=== PATIENT | male | born 1945 | race Two or more races ===

== ENCOUNTER 2017-06-22 13:43 | Inpatient (IN) | payer MEDICAID, MEDICARE, OTHER ==
[~2017-06-22] VITALS: Ht 180.3 cm; Wt 123.0 kg
[2017-06-22] MEDS ORDERED: VANCOMYCIN 1GM/250ML 250 ML IV ONE (15:45)
[2017-06-22] MEDS ORDERED: PIPERACILLIN-TAZOB 3.375GM 50 ML IV ONE (15:45)
[2017-06-22 16:36] LABS: Albumin 3.2 g/dL (3.4-5.0); BUN/Creatinine Ratio 4.3; Bilirubin, Total 0.3 mg/dL (0.2-1.0); Calcium 8.4 mg/dL (8.5-10.1)
[2017-06-22 16:42] LABS: Basophils # (auto) 0 uL; Basophils % (auto) 0.3 % (0.0-2.0); Eosinophils # (auto) 0.4 uL; Hematocrit 34.5 % (41.0-53.0); Hemoglobin 11.3 g/dL (13.5-17.5); Lymphocytes # (auto) 1.1 uL; Lymphocytes % (auto) 16.8 % (10.0-50.0); Mean Corpuscular Hgb Conc. 32.9 g/dL (32.0-36.0); Mean Corpuscular Volume 94.2 fL (80.0-100.0); Mean Platelet Volume 8.1 fL (6.9-10.8); Monocytes # (auto) 0.6 uL; Monocytes % (auto) 8.9 % (0.0-12.0); Neutrophils # (auto) 4.6 uL; Platelet Count (auto) 195 10^3/uL (140-450); Red Cell Distribution Width 15.3 % (11.8-14.3); White Blood Cell 6.8 10^3/uL (4.4-10.8)
[2017-06-22 16:45] LABS: Potassium 5.8 mmol/L (3.5-5.1)
[2017-06-22] MEDS ORDERED: DEXTROSE (50%) 50ML SYRG IV ONE (17:00)
[2017-06-22] MEDS ORDERED: ALBUTEROL SULF 2.5 MG/0.5ML(0.5%) NEB SOLN NEB ONE (17:00)
[2017-06-22] MEDS ORDERED: CALCIUM GLUC 4.65meq/50ml D5AE 50 ML IV ONE (17:00)
[2017-06-22] MEDS ORDERED: SODIUM BICARBONATE 8.4% INJ 50ML SYRINGE IV ONE (17:00)
[2017-06-22] MEDS ORDERED: InsuLIN REG 1unit/0.01ml Soln (100units/ml) IV ONE (17:00)
[2017-06-22] MEDS ORDERED: FUROSEMIDE 20 MG/2 ML VIAL IV ONE (17:00)
[2017-06-22] MEDS ORDERED: SODIUM POLYSTYRENE SULF 15GM/60ML SUSP PO ONE ×2 (17:00→20:30)
[2017-06-22] MEDS ORDERED: LORazepam 0.5 MG TAB PO PRN (17:45)
[2017-06-22] MEDS ORDERED: MORPHINE SULF INJ 2 MG/ML SYRINGE 1ML IV PRN ×2 (17:45)
[2017-06-22] MEDS ORDERED: DEXTROSE (50%) 50ML SYRG IV PRN (17:45)
[2017-06-22] MEDS ORDERED: HYDROcodone-ACET 5/325MG TAB PO PRN (17:45)
[2017-06-22] MEDS ORDERED: TEMAZEPAM 15 MG CAP PO PRN (17:45)
[2017-06-22] MEDS ORDERED: ACETAMINOPHEN 500 MG TAB PO PRN (17:45)
[2017-06-22] MEDS ORDERED: NITROGLYCERIN 0.4 MG SL TAB SL PRN (17:45)
[2017-06-22] MEDS ORDERED: PROMETHAZINE HCL 25 MG/ML 1ML IV PRN (17:45)
[2017-06-22] MEDS ORDERED: LACTULOSE 20Gm/30ML SOLN PO PRN (17:45)
[2017-06-22] MEDS ORDERED: PANTOPRAZOLE 40 MG TAB PO ONE (18:00)
[2017-06-22] MEDS ORDERED: ENOXAPARIN SOD 30 MG/0.3 ML SYRINGE SC ONE (18:00)
[2017-06-22 19:50] VITALS: BP 112/56
[2017-06-22] MEDS: SODIUM CHLOR 0.9% PF (SALINE LOCK) 10ML VIAL IV SCH (21:46)
[2017-06-22] MEDS: InsuLIN REG 1unit/0.01ml Soln (100units/ml) SC SCH (21:46)
[2017-06-22] MEDS: ACCU-CHEK COMFORT CURVE STRIP VI SCH (21:47)
[2017-06-22] MEDS: DOXYCYCLINE HYC 100MG/250ML 250 ML IV SCH (21:56)
[2017-06-22] MEDS: SULFAMETHOX W/TRIMETH(800/160MG) DS TAB PO SCH (21:56)
[2017-06-22 22:19] LABS: B-Type Natriuretic Peptide 85.42 pg/mL (0-100)
[2017-06-22 22:45] LABS: Temperature: 22.7 C (20.0-25.0)
[2017-06-23] MEDS ORDERED: OMEP20CA74 PO (03:19)
[2017-06-23] MEDS ORDERED: ALL100T PO (03:19)
[2017-06-23] MEDS ORDERED: SEVE800T8 PO (03:19)
[2017-06-23] MEDS ORDERED: CALC667C PO (03:19)
[2017-06-23 05:08] VITALS: BP 100/53
[2017-06-23] MEDS: SODIUM CHLOR 0.9% PF (SALINE LOCK) 10ML VIAL IV SCH ×3 (05:10→21:37)
[2017-06-23] MEDS ORDERED: HEPARIN SODIUM (PORCINE) 5000 UNITS/ML 1ML VIAL ONE (05:57)
[2017-06-23] MEDS: InsuLIN REG 1unit/0.01ml Soln (100units/ml) SC SCH ×4 (06:18→21:54)
[2017-06-23] MEDS: ACCU-CHEK COMFORT CURVE STRIP VI SCH ×4 (06:18→21:55)
[2017-06-23 06:25] LABS: Basophils # (auto) 0 uL; Basophils % (auto) 0.3 % (0.0-2.0); Eosinophils # (auto) 0.5 uL; Eosinophils % (auto) 8.3 % (0.0-7.0); Hematocrit 29.6 % (41.0-53.0); Hemoglobin 9.9 g/dL (13.5-17.5); Lymphocytes % (auto) 16.7 % (10.0-50.0); Mean Corpuscular Hemoglobin 31.3 pg (28.0-32.0); Mean Corpuscular Hgb Conc. 33.3 g/dL (32.0-36.0); Mean Corpuscular Volume 94.1 fL (80.0-100.0); Mean Platelet Volume 7.8 fL (6.9-10.8); Monocytes # (auto) 0.7 uL; Monocytes % (auto) 10.9 % (0.0-12.0); Neutrophils % (auto) 63.8 % (37.0-80.0); Platelet Count (auto) 175 10^3/uL (140-450); Red Cell Distribution Width 15.2 % (11.8-14.3); White Blood Cell 6.3 10^3/uL (4.4-10.8)
[2017-06-23] MEDS: HEPARIN SODIUM (PORCINE) 5000 UNITS/ML 1ML VIAL SC SCH ×3 (06:37→21:37)
[2017-06-23 06:40] LABS: Albumin 2.6 g/dL (3.4-5.0); BUN/Creatinine Ratio 4.4; Calcium 7.9 mg/dL (8.5-10.1); Potassium 4.7 mmol/L (3.5-5.1)
[2017-06-23 06:42] LABS: Bilirubin, Total 0.3 mg/dL (0.2-1.0); Total Protein 6.8 g/dL (6.4-8.2)
[2017-06-23 08:30] VITALS: BP 116/69
[2017-06-23] MEDS: DOXYCYCLINE HYC 100MG/250ML 250 ML IV SCH (09:11)
[2017-06-23] MEDS: SULFAMETHOX W/TRIMETH(800/160MG) DS TAB PO SCH ×2 (09:53→21:37)
[2017-06-23] MEDS: PANTOPRAZOLE 40 MG TAB PO SCH (09:53)
[2017-06-23] MEDS ORDERED: EPOETIN ALFA 10,000 UNIT/1 ML VIAL IV ONE (11:00)
[2017-06-23] MEDS ORDERED: SODIUM CHL 0.9% 1000 ML BAG XX ONE (11:00)
[2017-06-23 12:30] VITALS: BP 97/61
[2017-06-23 16:41] LABS: INR 0.99 (0.9-1.15); Partial Thromboplastin Time 29.2 sec (22.64-33.71); Prothrombin Time 10.8 sec (9.37-12.3)
[2017-06-23 17:17] VITALS: BP 141/65
[2017-06-23] MEDS: B-COMPLEX W/ C & FOLIC ACID(NEPHROVITE TAB) PO SCH (18:05)
[2017-06-23] MEDS: ASCORBIC ACID 500 MG TAB PO SCH (18:05)
[2017-06-23] MEDS: DOXYCYCLINE 100 MG TAB/CAP PO SCH (21:37)
[2017-06-23 21:49] VITALS: BP 118/59
[2017-06-24 04:45] VITALS: BP 115/64
[2017-06-24] MEDS: SODIUM CHLOR 0.9% PF (SALINE LOCK) 10ML VIAL IV SCH ×3 (05:09→23:08)
[2017-06-24] MEDS: InsuLIN REG 1unit/0.01ml Soln (100units/ml) SC SCH ×4 (06:37→22:00)
[2017-06-24] MEDS: ACCU-CHEK COMFORT CURVE STRIP VI SCH ×4 (06:38→23:09)
[2017-06-24] MEDS ORDERED: ceFAZolin 1GM VL ONE (08:00)
[2017-06-24] MEDS ORDERED: LIDOCAINE 1% HCL (LOCAL ANESTH.) INJ 20ML MDV ONE ×2 (08:00→08:32)
[2017-06-24] MEDS ORDERED: BUPIVACAINE 0.25% INJ 50ML VIAL ONE (08:01)
[2017-06-24] MEDS ORDERED: LIDOCAINE HCL (LOCAL ANESTH.) 0.5 % 50ML MDV IJ ONE (08:01)
[2017-06-24] MEDS ORDERED: HEPARIN SODIUM (PORCINE) 5000 UNITS/ML 1ML VIAL ONE ×3 (08:01→21:06)
[2017-06-24] MEDS ORDERED: BUPIVACAINE W/ EPINEPH 0.5% MPF 30ML VIAL IJ ONE (08:01)
[2017-06-24] MEDS ORDERED: HEPARIN 1,000 UNITS/ml 1ML VIAL ONE (08:01)
[2017-06-24] MEDS ORDERED: BUPIVACAINE W/ EPINEPH 0.25% INJ 50ML MDV ONE (08:01)
[2017-06-24] MEDS ORDERED: ceFAZolin 1GM/50ML 50 ML IV ONE (08:36)
[2017-06-24 09:00] VITALS: BP 93/40
[2017-06-24] MEDS: HEPARIN SODIUM (PORCINE) 5000 UNITS/ML 1ML VIAL SC SCH ×2 (10:00→21:27)
[2017-06-24] MEDS: DOXYCYCLINE 100 MG TAB/CAP PO SCH ×2 (11:24→21:25)
[2017-06-24] MEDS: PANTOPRAZOLE 40 MG TAB PO SCH (11:24)
[2017-06-24] MEDS: ASCORBIC ACID 500 MG TAB PO SCH (11:25)
[2017-06-24] MEDS: B-COMPLEX W/ C & FOLIC ACID(NEPHROVITE TAB) PO SCH (11:39)
[2017-06-24] MEDS: SULFAMETHOX W/TRIMETH(800/160MG) DS TAB PO SCH ×2 (11:39→21:25)
[2017-06-24 13:00] VITALS: BP 117/77
[2017-06-24 17:00] VITALS: BP 117/71
[2017-06-24 22:00] VITALS: BP 90/50
[2017-06-24] MEDS: MUPIROCIN 2% OINT 22GM EACHNOSTRI SCH (23:08)
[2017-06-25 05:00] VITALS: BP 116/66
[2017-06-25 05:44] LABS: Basophils # (auto) 0 uL; Basophils % (auto) 0.3 % (0.0-2.0); Eosinophils # (auto) 0.5 uL; Eosinophils % (auto) 8.9 % (0.0-7.0); Hematocrit 31.8 % (41.0-53.0); Hemoglobin 10.8 g/dL (13.5-17.5); Lymphocytes # (auto) 0.8 uL; Lymphocytes % (auto) 15.2 % (10.0-50.0); Mean Corpuscular Hemoglobin 31.6 pg (28.0-32.0); Mean Corpuscular Hgb Conc. 33.9 g/dL (32.0-36.0); Mean Corpuscular Volume 93.2 fL (80.0-100.0); Monocytes # (auto) 0.6 uL; Monocytes % (auto) 11.1 % (0.0-12.0); Neutrophils # (auto) 3.3 uL; Neutrophils % (auto) 64.5 % (37.0-80.0); Nucleated Red Blood Cells % 0.1 %; Platelet Count (auto) 175 10^3/uL (140-450); Red Cell Distribution Width 15.2 % (11.8-14.3); White Blood Cell 5.1 10^3/uL (4.4-10.8)
[2017-06-25] MEDS: SODIUM CHLOR 0.9% PF (SALINE LOCK) 10ML VIAL IV SCH ×2 (05:57→14:00)
[2017-06-25] MEDS: ACCU-CHEK COMFORT CURVE STRIP VI SCH ×3 (05:58→17:00)
[2017-06-25] MEDS: InsuLIN REG 1unit/0.01ml Soln (100units/ml) SC SCH ×3 (05:58→17:00)
[2017-06-25 06:11] LABS: BUN/Creatinine Ratio 4.5; Calcium 8.8 mg/dL (8.5-10.1); Magnesium 2.2 mg/dL (1.6-2.6); Potassium 4.6 mmol/L (3.5-5.1)
[2017-06-25] MEDS ORDERED: HEPARIN 1,000 UNITS/ml 1ML VIAL ONE (07:45)
[2017-06-25] MEDS ORDERED: ceFAZolin 1GM VL ONE (07:45)
[2017-06-25] MEDS ORDERED: LIDOCAINE 1% HCL (LOCAL ANESTH.) INJ 20ML MDV ONE ×2 (07:45→08:55)
[2017-06-25] MEDS ORDERED: HEPARIN SODIUM (PORCINE) 5000 UNITS/ML 1ML VIAL ONE (07:46)
[2017-06-25] MEDS ORDERED: BUPIVACAINE 0.25% INJ 50ML VIAL ONE (07:46)
[2017-06-25] MEDS ORDERED: BUPIVACAINE W/ EPINEPH 0.25% INJ 50ML MDV ONE (07:46)
[2017-06-25 08:11] LABS: INR 1.05 (0.9-1.15); Partial Thromboplastin Time 30.2 sec (22.64-33.71); Prothrombin Time 11.4 sec (9.37-12.3)
[2017-06-25] MEDS ORDERED: ceFAZolin 1GM/50ML 50 ML IV ONE (08:23)
[2017-06-25 08:25] VITALS: BP 120/62
[2017-06-25] MEDS ORDERED: MIDAZOLAM HCL 1MG/1ML-2 ML VIAL ONE (08:31)
[2017-06-25] MEDS ORDERED: LIDOCAINE HCL 100 MG/5ML (2%) SYRG INJ IV ONE (08:34)
[2017-06-25] MEDS ORDERED: PROPOFOL 10 MG/ML 20 ML IV ONE ×2 (08:34→09:18)
[2017-06-25] MEDS ORDERED: fentaNYL CITRATE 100 MCG/2 ML VL ONE (08:39)
[2017-06-25] MEDS ORDERED: METOCLOPRAMIDE HCL 5MG/ml INJ 2ml VIAL ONE (08:39)
[2017-06-25] MEDS ORDERED: PHENYLEPHRINE HCL 10 MG/ML VL ONE (09:04)
[2017-06-25] MEDS: HEPARIN SODIUM (PORCINE) 5000 UNITS/ML 1ML VIAL SC SCH (10:00)
[2017-06-25] MEDS ORDERED: ONDANSETRON HCL 4 MG/2 ML VIAL IV ONE (10:15)
[2017-06-25] MEDS ORDERED: HYDROmorphone HCL 2 MG/ML VL IV PRN (10:15)
[2017-06-25] MEDS ORDERED: NALOXONE HCL 0.4 MG/ML VIAL IV PRN (10:15)
[2017-06-25] MEDS ORDERED: ACCU-CHEK COMFORT CURVE STRIP VI ONE (10:15)
[2017-06-25] MEDS: B-COMPLEX W/ C & FOLIC ACID(NEPHROVITE TAB) PO SCH (11:29)
[2017-06-25] MEDS: PANTOPRAZOLE 40 MG TAB PO SCH (11:29)
[2017-06-25] MEDS: ASCORBIC ACID 500 MG TAB PO SCH (11:29)
[2017-06-25] MEDS: DOXYCYCLINE 100 MG TAB/CAP PO SCH (11:29)
[2017-06-25] MEDS: MUPIROCIN 2% OINT 22GM EACHNOSTRI SCH (11:30)
[2017-06-25 13:37] VITALS: BP 133/83
[2017-06-25 17:06] VITALS: BP 127/50
== END 2017-06-25 17:36 | disposition home or self-care (01) | DRG 314 ==
LOC: EDBD 13:43 → ER 14:04 → TELE 14:05 → TELE-WESTW 19:50
PROVIDERS: ADMIT Internal Medicine; ATTEND Family Medicine
PROC: 06PY33Z Removal of Infusion Device from Lower Vein, Percutaneous Approach (ICD-10-PCS; 2017-06-24)
PROC: 5A1D70Z Performance of Urinary Filtration, Intermittent, Less than 6 Hours Per Day (ICD-10-PCS; 2017-06-24)
PROC: 06HN33Z Insertion of Infusion Device into Left Femoral Vein, Percutaneous Approach (ICD-10-PCS; principal; 2017-06-24 08:58)
PROC: 05JY3ZZ Inspection of Upper Vein, Percutaneous Approach (ICD-10-PCS; 2017-06-25)
DX: T82.41XA Breakdown (mechanical) of vascular dialysis catheter, initial encounter (principal); N18.6 End stage renal disease; I13.2 Hypertensive heart and chronic kidney disease with heart failure and with stage 5 chronic kidney disease, or end stage renal disease; E87.5 Hyperkalemia; E10.22 Type 1 diabetes mellitus with diabetic chronic kidney disease; L03.115 Cellulitis of right lower limb; E66.01 Morbid (severe) obesity due to excess calories; L03.116 Cellulitis of left lower limb; T82.42XA Displacement of vascular dialysis catheter, initial encounter; Z99.2 Dependence on renal dialysis; I50.9 Heart failure, unspecified; K21.9 Gastro-esophageal reflux disease without esophagitis; G47.33 Obstructive sleep apnea (adult) (pediatric); H54.62 Unqualified visual loss, left eye, normal vision right eye; I44.0 Atrioventricular block, first degree; I45.10 Unspecified right bundle-branch block; I87.8 Other specified disorders of veins; M10.9 Gout, unspecified; Y71.2 Prosthetic and other implants, materials and accessory cardiovascular devices associated with adverse incidents; Z90.49 Acquired absence of other specified parts of digestive tract; Z98.42 Cataract extraction status, left eye; Z98.41 Cataract extraction status, right eye; Z91.041 Radiographic dye allergy status; Z79.899 Other long term (current) drug therapy; H54.40 Blindness, one eye, unspecified eye; Z68.37 Body mass index [BMI] 37.0-37.9, adult
CPT/HCPCS: 36415; 71010; 80048; 80053; 82962; 83036; 83735; 83880; 84132; 85025; 85610; 85730; 87081; 90935; 93005; 93971; 94640; 96365; J0610; J0690; J0885; J1642; J1815; J2001; J2250; J2543; J2704; J3490